=== PATIENT | male | born 1935 | race Caucasian/White ===

== ENCOUNTER 2017-10-17 17:59 | Day surgery (SDC) | payer MEDICARE ==
[~2017-10-17] VITALS: Ht 177.8 cm; Wt 93.9 kg
--- NOTE | ~2017-10-17 | OP ---
PATIENT NAME: Steve SHAY MEDICAL RECORD: [id number] :39 LOCATION:D.OPS ADMISSION DATE: SURGEON: GRAEME BRYAN MD DATE OF OPERATION: 10/18/2017 PREOPERATIVE DIAGNOSIS: Right total knee arthroplasty, posterior knee dislocation (Cam jump). POSTOPERATIVE DIAGNOSIS: Right total knee arthroplasty, posterior knee dislocation (Cam jump). PROCEDURE: Closed reduction of right total knee posterior dislocation with TIVA anesthesia. SURGEON: Graeme Bryan MD ANESTHESIA: TIVA. INTRAOPERATIVE COMPLICATIONS: None. SUMMARY OF PATHOLOGIC FINDINGS: Essentially none. OPERATIVE SUMMARY IN DETAIL: After obtaining the appropriate preoperative orthopedic surgery consent as well as anesthetic consultation, evaluation, and clearance, the patient was brought to the operating room and placed on the operating table in supine position. After adequate general TIVA anesthesia was administered and the patient was comfortable, the knee was slightly flexed to beyond 100 degrees and gentle anterior portal allowed for translation of the post back into the intercondylar notch. Excellent range of motion was achieved. No untoward instability was noted in any plane. AP and lateral fluoroscopic views were taken and sent to radiology for final analysis. Having completed this, the patient was awakened, taken to the recovery in stable condition. All final needle and sponge counts were correct. TRANSINT:[id number] Voice Confirmation ID: [id number] DOCUMENT ID: [id number] GRAEME BRYAN MD at 1606 CC: [id number] DICTATION DATE: 10/18/17 0906 HABILITATION TRAINING SPECIALIST: 10/18/17 1108 [facility] 10/18/[address] [address]
[2017-10-17 18:44] VITALS: BP 203/96
[2017-10-18] VITALS: BP 170/71
[2017-10-18 04:00] VITALS: BP 193/85
[2017-10-18 04:36] VITALS: BP 170/71; BMI 30.9
[2017-10-18 05:16] LABS: BASOPHILS 0.5 % (0-2); EOSINOPHILS 2.8 % (0-7); HEMATOCRIT 41.6 % (42.0-54.0); HEMOGLOBIN 13.3 g/dL (13.5-17.5); IMMATURE GRANULOCYTES 0.8 % (0-5); LYMPHOCYTES 29.7 % (15-50); MCH 27.5 pg (26.0-34.0); MCV 86.1 fL (80.0-100.0); MEAN PLATELET VOLUME 9.6 fL (7.4-10.4); MONOCYTES 14.4 % (2-11); NEUTROPHILS 51.8 % (40-80); PLATELET COUNT 168 10x3/uL (130-400); RBC 4.83 10x6/uL (4.20-6.10); RDW 13.4 % (11.5-14.5); WBC 8.3 10x3/uL (4.8-10.8)
[2017-10-18 05:34] LABS: ALBUMIN 2.9 g/dL (3.4-5.0); ALKALINE PHOSPHATASE 74 U/L (46-116); ALT (SGPT) 21 U/L (10-68); BILIRUBIN - TOTAL 0.43 mg/dL (0.2-1.3); CALC OSMOLALITY 275 mosm/kg (275-300); CALCIUM 8.2 mg/dL (8.5-10.1); CARBON DIOXIDE 32.9 mmol/L (21.0-32.0); CHLORIDE - SERUM 104 mmol/L (98-107); GLUCOSE 107 mg/dL (74-106); POTASSIUM - SERUM 3.7 mmol/L (3.5-5.1); SODIUM 138 mmol/L (136-145); UREA NITROGEN 13 mg/dL (7-18); eGFR NON AFRICAN AMERICAN 76 mL/min (90-120)
[2017-10-18 08:23] VITALS: BP 119/86
[2017-10-18 11:00] VITALS: BP 177/84
[2017-10-18 12:29] VITALS: Ht 177.8 cm; Wt 93.9 kg
[2017-10-18] MEDS ORDERED: HYDROCODONE-APA1 TAB PO (16:22)
== END 2017-10-18 17:04 | disposition home or self-care (01) ==
LOC: OBSVTIME → D.ER 17:59 → D.OPS 17:59 → D.ER 18:48 → OBSVTIME 18:48 → D.M2 18:48 → D.EDHOLD 18:48 → D.M2 22:30 → D.EDHOLD 22:30 → EDSTATUS 10-18 07:30 → D.M2 10-18 17:04 → D.OPS 10-18 17:04
PROVIDERS: Orthopaedic Surgery
DX: T84.022A Instability of internal right knee prosthesis, initial encounter (principal); Y83.8 Other surgical procedures as the cause of abnormal reaction of the patient, or of later complication, without mention of misadventure at the time of the procedure

== ENCOUNTER 2020-09-09 12:23 | Inpatient (IN) | payer MEDICARE ==
[~2020-09-09] VITALS: Ht 177.8 cm; Wt 101.8 kg
[~2020-09-09 12:23] MED LIST: HYDROCODONE-APA1 TAB PO
[2020-09-09 14:32] LABS: BASOPHILS 0.4 % (0-2); EOSINOPHILS 3.2 % (0-7); HEMATOCRIT 30.6 % (42.0-54.0); HEMOGLOBIN 9.8 g/dL (13.5-17.5); IMMATURE GRANULOCYTES 0.4 % (0-5); LYMPHOCYTE ABS# 1.88 10x3/uL (1.32-3.57); LYMPHOCYTES 26.3 % (15-50); MCV 84.3 fL (80.0-100.0); MONOCYTES 17.5 % (2-11); NEUTROPHIL ABS# 3.74 10x3/uL (1.78-5.38); NEUTROPHILS 52.2 % (40-80); PLATELET COUNT 214 10x3/uL (130-400); RBC 3.63 10x6/uL (4.20-6.10); RDW 13.6 % (11.5-14.5); WBC 7.2 10x3/uL (4.8-10.8)
[2020-09-09 14:40] LABS: APTT 29.1 SECONDS (22.8-39.4); INR 1.31 (0.85-1.17); PROTIME 15.1 SECONDS (11.6-15.0)
[2020-09-09 14:43] LABS: ANION GAP 10.7 mmol/L (8-16); CALCIUM 8.5 mg/dL (8.5-10.1); CREATININE - SERUM 1.2 mg/dL (0.6-1.3); POTASSIUM - SERUM 3.7 mmol/L (3.5-5.1)
[2020-09-09 14:49] LABS: ALBUMIN 2.9 g/dL (3.4-5.0); BILIRUBIN - TOTAL 0.4 mg/dL (0.2-1.3); C-REACTIVE PROTEIN 2.7 mg/dL (0.0-0.9); PROTEIN - SERUM 6.3 g/dL (6.4-8.2)
[2020-09-09 16:04] LABS: PROTEIN - BODY FLUID 4.3 G/DL
[2020-09-09 16:39] LABS: ERYTHROCYTE SEDIMENTATION RATE 12 mm/hr (0-20)
--- NOTE | 2020-09-09 17:00 | NUR ---
MERREM INFUSION COMPLETE
--- NOTE | 2020-09-09 17:10 | NUR ---
vancomycin infusion complete
[2020-09-09 18:34] VITALS: BP 151/71
[2020-09-09 18:36] LABS: MACROPHAGES BF 1 %; MESOTHELIALS BF 3 %; NEUT - BF 87 %
--- NOTE | 2020-09-09 20:00 | NUR ---
PT ARRIVED TO FLOOR AOX4 VIA WHEELCHAIR. TRANSFERED TO BED. LEFT KNEE RED/SWOLLEN AND WARM TO TOUCH. BAND AID ON KNEE FROM ASPIRATION IN ER. PT STATES HE HAD KNEE REPLACEMENT IN [place] AND JUST CAME BACK FROM REHAB THIS WEEKEND AND HE FELL INTO FLOOR AT HOME TRANSFERING OUT OF BED AND HAD TO CRAWL TO A CHAIR. SINCE THAT TIME HIS KNEE HAS HURT AND THEN STARTED SWELLING. IV RIGHT AC SL. FLUSHES EASILY. REINFORCED TAPE AROUND DRESSING. PT DENIES PAIN AT THIS TIME. PROVIDED URINAL. PLACED PT IN YELLOW GOWN. BED ALARM ON. NON SLIP SOCKS. PT DID NOT WANT TO WEARS SCDS AT THIS TIME, EDUCATED PT ON USE AND PT VERBALIZED UNDERSTANDING. EDUCATED PT ON INCENTIVE SPIROMETER AND PT DEMONSTRATED APPROPRIATE USE BACK, ENCOURAGED PT TO USE WHILE AWAKE. PT DENIES OTHER NEEDS AT THIS TIME. CL IN REACH
[2020-09-09 23:51] LABS: % SATURATION 12 % (15-55); IRON 22 ug/dl (35-150); TOTAL IRON BIND CAPACITY 171 ug/dl (260-445); UNSAT IRON BIND CAPACITY 149 ug/dl (150-375)
[2020-09-10 00:20] LABS: CKMB 1.3 U/L (0.0-3.6); CREATINE KINASE 53 UL (21-232); FERRITIN 309 ng/mL (3-244); TROPONIN-I < 0.017 ng/mL (0.000-0.060)
[2020-09-10 01:30] VITALS: BP 194/81; Ht 177.8 cm; Wt 101.8 kg
[2020-09-10 02:08] LABS: NITRITE NEGATIVE (NEGATIVE)
[2020-09-10 02:09] LABS: BILIRUBIN NEGATIVE (NEGATIVE); KETONE NEGATIVE (NEGATIVE); UROBILINOGEN NORMAL mg/dL (< 2)
[2020-09-10 04:00] VITALS: BP 167/83
[2020-09-10 07:12] LABS: BASOPHILS 0.8 % (0-2); EOSINOPHILS 4.4 % (0-7); HEMATOCRIT 28.6 % (42.0-54.0); HEMOGLOBIN 9.4 g/dL (13.5-17.5); LYMPHOCYTES 21.9 % (15-50); MCH 27.2 pg (26.0-34.0); MEAN PLATELET VOLUME 7.7 fL (7.4-10.4); MONOCYTES 14.1 % (2-11); NEUTROPHILS 58.8 % (40-80); PLATELET COUNT 204 10x3/uL (130-400); RBC 3.48 10x6/uL (4.20-6.10); RDW 14.4 % (11.5-14.5); WBC 5.8 10x3/uL (4.8-10.8)
[2020-09-10 07:18] LABS: MCV 82.3 fL (80.0-100.0)
[2020-09-10 07:24] LABS: ALBUMIN 2.6 g/dL (3.4-5.0); ALKALINE PHOSPHATASE 59 U/L (30-120); ALT (SGPT) 16 U/L (10-68); BILIRUBIN - TOTAL 0.45 mg/dL (0.2-1.3); CALC OSMOLALITY 276 mosm/kg (275-300); CALCIUM 8.1 mg/dL (8.5-10.1); CARBON DIOXIDE 31.6 mmol/L (21.0-32.0); CHLORIDE - SERUM 103 mmol/L (98-107); GLUCOSE 125 mg/dL (74-106); MAGNESIUM - SERUM 1.7 mg/dL (1.8-2.4); POTASSIUM - SERUM 3.8 mmol/L (3.5-5.1); PROTEIN - SERUM 5.9 g/dL (6.4-8.2); SODIUM 138 mmol/L (136-145); UREA NITROGEN 12 mg/dL (7-18); eGFR NON AFRICAN AMERICAN 76 mL/min (90-120)
--- NOTE | 2020-09-10 07:56 | NUR ---
PT. RESTING IN BED, DENIES ANY PAIN OR NEEDS. iv INFUSING AT THIS TIME TO R. AC KVO. LEFT KNEE IS SWOLLEN AND REDDENED. ALERT AND ORIETED. NO DISTRESS. CL WITHIN REACH. SR UPX2. YELLOW GOWN ON.
[2020-09-10] MEDS ORDERED: LIPITOR20 MG PO (09:27)
[2020-09-10] MEDS ORDERED: COZAAR100 MG PO (09:28)
[2020-09-10] MEDS ORDERED: GLUCOPHAGE1000 MG ×2 (09:28)
[2020-09-10] MEDS ORDERED: NORVASC5 MG PO (09:29)
[2020-09-10] MEDS ORDERED: ULTRAM50 MG PO (09:30)
[2020-09-10] MEDS ORDERED: FUROSEMIDE20 MG PO (09:30)
[2020-09-10] MEDS ORDERED: GABAPENTIN300 MG PO (09:31)
[2020-09-10 09:52] VITALS: BP 147/67
[2020-09-10 12:36] VITALS: BP 163/64
--- NOTE | 2020-09-10 13:45 | NUR ---
VANESA JAFFE APN CONTACTED REGARDING PT'S PAIN STATUS AND ORDERED ULTRAM NOT LASTING LONG FOR PAIN. PO HYDROCODONE 10-325 MG ORDERED Q4 HOURS PRN FOR PAIN SCALE 7-10. GRAM POSITIVE COCCI BLOOD CULTURE RESULT ALSO GIVEN AND NO NEW ORDERS AT THIS TIME.
--- NOTE | 2020-09-10 14:11 | NUR ---
REHAB PRESCREEN HAS BEEN RECEIVED. AT THIS TIME WE WOULD LIKE TO CONTINUE TO WATCH THE PATIENT TO SEE WHAT ORTHO IS PLANNING TO DO WITH HIM, AND IF HE WILL BE ABLE TO PARTICIPATE WITH THERAPY, RIGHT NOW HIS PAIN IS TO GREAT. WE WILL CONTINUE TO FOLLOW. ERNESTO WILCOX RN CLINICAL LIAISON, INPATIENT REHAB.
[2020-09-10 16:33] VITALS: BP 177/76
--- NOTE | 2020-09-10 20:00 | NUR ---
PT SITTING UP IN BED WITHOUT DISTRESS, AOX4. IV RIGHT AC INFUSING NS @ KV0. LEFT KNEE SWOLLEN, RED AND WARM TO TOUCH. 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 PT STATES HE IS COMFORTABLE AT THIS TIME AFTER NORCO EARLIER TODAY. DENIES NEEDS AT THIS TIME. CL IN REACH
[2020-09-10 20:12] VITALS: BP 160/70
--- NOTE | 2020-09-10 23:45 | NUR ---
PT STATES PAIN TO LEFT KNEE 10/17, GAVE NORCO ORDERED. PT REQUESTED AND GIVEN PUDDING AND ORANGE JUICE. DENIES OTHER NEEDS AT THIS TIME. CL IN REACH
[2020-09-11 04:00] VITALS: BP 160/74
[2020-09-11 07:20] LABS: ALBUMIN 2.5 g/dL (3.4-5.0); ANION GAP 8.4 mmol/L (8-16); BASOPHILS 0.6 % (0-2); BILIRUBIN - TOTAL 0.33 mg/dL (0.2-1.3); CALCIUM 8.3 mg/dL (8.5-10.1); CARBON DIOXIDE 30.3 mmol/L (21.0-32.0); CREATININE - SERUM 1.1 mg/dL (0.6-1.3); EOSINOPHILS 4.9 % (0-7); HEMATOCRIT 28.3 % (42.0-54.0); HEMOGLOBIN 9.3 g/dL (13.5-17.5); LYMPHOCYTES 28.6 % (15-50); MAGNESIUM - SERUM 1.9 mg/dL (1.8-2.4); MCHC 32.8 g/dL (31.0-37.0); MCV 82.3 fL (80.0-100.0); MONOCYTES 15.9 % (2-11); PLATELET COUNT 206 10x3/uL (130-400); POTASSIUM - SERUM 3.7 mmol/L (3.5-5.1); PROTEIN - SERUM 5.8 g/dL (6.4-8.2); RBC 3.44 10x6/uL (4.20-6.10); RDW 14.5 % (11.5-14.5)
[2020-09-11 08:42] VITALS: BP 160/71
--- NOTE | 2020-09-11 08:48 | NUR ---
PT. RECEIVED RESTING INBED. NO DISTRESS. DENIES ANY PAIN OR NEEDS. IV INTACT R. AC 20G. LEFT KNEE REDDENED, HOT, SWOLLEN, AND WARM. REFUSES SCDS AT THIS TIME. CL IN REACH. SRUPX2.
[2020-09-11 12:53] VITALS: BP 184/80
--- NOTE | 2020-09-11 15:03 | NUR ---
PRESSURE MATTRESS PLACED ON BED. WOUND CARE DONE TO COCCYX WOUND. 4X4 GAUZE PLACED OVER AREA AND COVERED WITH CLEAR TEGADERM. 254 CM LONG X 0.5 CM WIDE X 5.8 MM DEEP. STAGE 2. NO DRAINAGE. YELLOW, MOIST WOUND BED.
--- NOTE | 2020-09-11 16:45 | NUR ---
OT NOTE: PT COMPLETED SHAVING TASK WITH SETUP. PT COMPLETED FACE HYGIENE WITH SETUP. PT COMPLETED HAIR GROOMING WITH SETUP. PT COMPLETED HAND HYGIENE WITH SETUP. [id number] JEREMY CALDWELL COTA
[2020-09-11 17:05] VITALS: BP 189/78
[2020-09-11 21:57] VITALS: BP 107/71
[2020-09-12 04:36] LABS: EOSINOPHILS 4.5 % (0-7); HEMOGLOBIN 9.3 g/dL (13.5-17.5); LYMPHOCYTES 27.2 % (15-50); MCH 27.2 pg (26.0-34.0); MCHC 33.3 g/dL (31.0-37.0); MCV 81.7 fL (80.0-100.0); MEAN PLATELET VOLUME 7.6 fL (7.4-10.4); MONOCYTES 14.5 % (2-11); NEUTROPHILS 52.8 % (40-80); PLATELET COUNT 214 10x3/uL (130-400); RBC 3.43 10x6/uL (4.20-6.10); RDW 14.5 % (11.5-14.5); WBC 6.7 10x3/uL (4.8-10.8)
[2020-09-12 04:51] LABS: ALBUMIN 2.5 g/dL (3.4-5.0); ANION GAP 7.7 mmol/L (8-16); BILIRUBIN - TOTAL 0.38 mg/dL (0.2-1.3); CALCIUM 8.1 mg/dL (8.5-10.1); CARBON DIOXIDE 31.3 mmol/L (21.0-32.0); CREATININE - SERUM 1.2 mg/dL (0.6-1.3); MAGNESIUM - SERUM 1.9 mg/dL (1.8-2.4); PROTEIN - SERUM 5.8 g/dL (6.4-8.2)
[2020-09-12 06:38] VITALS: BP 175/59
--- NOTE | 2020-09-12 08:05 | NUR ---
PT SITTING UP IN BED. REPORTS PAIN 3/10 AT THIS TIME. RESP EVEN AND UNLABORED. IV TO RIGHT AC ITH NS @ KVO INFUSING VIA PUMP. SITE WITHOUT REDNESS OR EDEMA. REDNESS AND SWELLING NOTED TO LEFT LOWER EXTREMITY. AREA WARM TO TOUCH. OVERLAY MATTRESS IN PLACE. DENIES FURTHER NEEDS AT THIS TIME. CL WITHIN REACH. ENCOURAGED TO CALL WIT NEEDS. CONTINUE POC
[2020-09-12 09:28] VITALS: BP 170/82
[2020-09-12 12:16] VITALS: BP 163/83
[2020-09-12 17:08] VITALS: BP 173/71
--- NOTE | 2020-09-12 18:26 | MORECARE ---
CASE MANAGEMENT DISCHARGE SUMMARY PATIENT: Steve SHAY UNIT: [id number] ADM DATE: 09/09/20 AGE: 85 : 37 SEX: M ROOM/BED: D.2204 AUTHOR: MALACHI,DOC PHYSICIAN: REFERRING PHYSICIAN: THANIA WILSON MD DATE OF SERVICE: 09/12/20 Case Management Discharge Planning Summary COMMENTS ENTERED DATE: 09/12/20 18:24 CT COMMENT TYPE: Discharge Planning REVIEWER: Steve Murray CM met with patient to complete DC plan and to evaluate needs. Patient lives independently with his spouse, Kaye Godwin, . Patient stated that his home is safe and has electricity and running water. Patient stated that the home has 1 step to enter and he is able to manage entering the home without difficulty. Patient stated that he has no problems paying for medications and he fills his medications at [facility] on [address]. Patient stated that his primary care physician is Dr. Landaverde. CM discussed availability of home health, rehab services, and medical equipment. Patient declined HHS, SNF, and DME but would like inpatient rehab at [facility]. DAVID signed and placed in chart. Patient stated they have a cane, walker, and Wheelchair. Patient voiced no other needs at this time and is satisfied with DC plan. CM will continue to follow and will assist as needed with dc plans/needs. ENTERED DATE: 09/12/20 17:57 CT COMMENT TYPE: Discharge Planning REVIEWER: Philomena Mullins Faxed clinical documents(referral) to [facility] in [place] DCP REVIEW SUMMARY ANTICIPATED D/C DATE: EXPECTED LOS : CASE STATUS: DCP Initiated INITIAL REVIEW: 09/09/2020 INITIAL REVIEWER: Steve Murray FINAL DISCHARGE DISPOSITION: : FINAL REVIEWER: FINAL REVIEW DATE: DCP Focus Questions & Answers DCP Evaluation QUESTION: ANSWER Patient gives permission to discuss discharge plans with: (name, relationship and number) : spouse, Kaye Godwin, Patient's ability to cope with chronic illness : d. No chronic illness Patient's current cognitive status: : *Oriented to person, place, situation, time and present Family / Caregiver's ability to cope with chronic illness: : a. Adequate (ability to meet patient's medical needs, ensures patient attends medical appts.) Patient and/or caregiver agree upon recommended discharge plan? : Yes Physical Status: : Independent with ADL's Family / Caregiver's ability to cope with chronic illness: : a. Adequate (ability to meet patient's medical needs, ensures patient attends medical appts.) Functional screen assessment: : Basic needs can adequately be met by self Does the patient have the ability to pay for or attain post discharge needs / services? : Yes Living Arrangements: : Home with Spouse/Significant Other Is there a likelihood that the patient will require additional services to return to the preadmission environment? : No Equipment needed for post hospitalization: : None Baseline cognitive status: : *Oriented to person, place, situation, time and present Patient with capacity for self-care or can be cared for in same environment as prior to hospitalization? : Yes Physical environment modification needed / anticipated for discharge: : No Medication Management: : Patient states can afford medications Medication Management: : Patient states can read and understand medication labels Pharmacy name(s): : [facility] on [address] Does Patient have transportation to get home and to follow-up medical appointments when discharged from the hospital? : Yes Would patient like to participate in any Care Coordination programs (if applicable): : Not applicable Does the patient have electricity at home? : Yes Does the patient have running water in their house? : Yes Equipment in use: : Cane - Single Leg Equipment in use: : Walker - Rolling Equipment in use: : Wheelchair Mental health screen: : No mental health history DCP Re-evaluation QUESTION: ANSWER Would patient like to participate in any Care Coordination programs (if applicable): : Not applicable PATIENT: Steve SHAY ENCOUNTER: [id number] MEDICAL RECORD#: [id number] ADMISSION DATE: 09/09/2020 DISCHARGE DATE: ATTENDING MD: THANIA MANDUJANO : AGE: 85 MARITAL STATUS: M DC PLAN ID: [id number] FACILITY: [facility] PRINTED ON: 09/12/20 18:26 CT All edits/amendments must be made on the electronic document DICTATION DATE: 09/12/201825 SEGMENT ASSEMBLER: ALFRED 09/12/201825 RPT#: [id number] DC DATE: STATUS: ADM IN [facility] [address] [place] [address] END OF REPORT
--- NOTE | 2020-09-12 20:00 | NUR ---
PT STATES HE HAD BEEN WAITING SINCE 1845 FOR PAIN MEDS. NEITHER I OR DAYSHIFT NURSE WAS AWARE THAT HE NEEDED PAIN MEDICINE. 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 PT ANGRY AND DOWN TALKING HOSPITAL. I APOLOGIZED SINCERELY AND GAVE HIM HIS NORCO-10 AND OTHER SCHEDULED MEDS. STRAIGHTENED HIS BED AND TRIED TO MAKE HIM COMFORTABLE. BROUGHT HIM ICE WATER AND SNACKS. WILL CONTINUE TO MONITOR.
--- NOTE | 2020-09-12 21:30 | NUR ---
AT 2109, PT C/O THAT HIS PAIN IS NOT ANY BETTER SINCE RECEIVING THE PAIN MED. STATES HE "HAD TO WAIT TOO LONG" TO GET IT AND NOW HIS PAIN CAN'T BE CONTROLLED. I CALLED VANESA JAFFE APN AND RECEIVED ONE TIME ORDER FOR MORPHINE. GAVE PT MORPHINE 4MG IV PUSH. NO OTHER NEEDS. WILL CONTINUE TO MONITOR.
[2020-09-13 00:53] VITALS: BP 158/79
[2020-09-13 04:00] VITALS: BP 163/68
[2020-09-13 07:05] LABS: BASOPHILS 0.8 % (0-2); EOSINOPHILS 5.2 % (0-7); HEMATOCRIT 29.8 % (42.0-54.0); HEMOGLOBIN 9.8 g/dL (13.5-17.5); LYMPHOCYTES 26.5 % (15-50); MCH 26.8 pg (26.0-34.0); MCHC 32.8 g/dL (31.0-37.0); MCV 81.7 fL (80.0-100.0); MEAN PLATELET VOLUME 7.9 fL (7.4-10.4); MONOCYTES 13.7 % (2-11); NEUTROPHILS 53.8 % (40-80); PLATELET COUNT 226 10x3/uL (130-400); RBC 3.65 10x6/uL (4.20-6.10); RDW 14.6 % (11.5-14.5); WBC 6.6 10x3/uL (4.8-10.8)
[2020-09-13 08:05] LABS: ALBUMIN 2.7 g/dL (3.4-5.0); ALKALINE PHOSPHATASE 69 U/L (30-120); ALT (SGPT) 17 U/L (10-68); BILIRUBIN - TOTAL 0.28 mg/dL (0.2-1.3); CALC OSMOLALITY 278 mosm/kg (275-300); CALCIUM 8.2 mg/dL (8.5-10.1); CARBON DIOXIDE 31.2 mmol/L (21.0-32.0); CHLORIDE - SERUM 104 mmol/L (98-107); GLUCOSE 105 mg/dL (74-106); MAGNESIUM - SERUM 1.9 mg/dL (1.8-2.4); POTASSIUM - SERUM 4.1 mmol/L (3.5-5.1); PROTEIN - SERUM 5.8 g/dL (6.4-8.2); SODIUM 139 mmol/L (136-145); UREA NITROGEN 15 mg/dL (7-18); eGFR NON AFRICAN AMERICAN 76 mL/min (90-120)
--- NOTE | 2020-09-13 08:25 | NUR ---
PT RESTING IN BED TALKING ON PHONE. NO ACUTE DISTRESS NOTED AT THIS TIME. PT REPORTS PAIN 6/10 AT THIS TIME. PAIN MEDICATION ADMINISTERED PER MD ORDERS. IV TO RIGHT AC WITH NS @ KVO INFUSING VIA PUMP. SITE WITHOUT REDNESS OR EDEMA. LEFT LOWER EXTREMITY REMAIN REDDENED AND INFLAMED. PT VOICES UNDERSTANDING TO NPO STATUS AND UPCOMING PROCEDURE. PT DENIES FURTHER NEEDS AT THIS TIME. CL WITHIN REACH. ENCOURAGED TO CALL WITH NEEDS. CONTINUE POC
[2020-09-13 08:53] VITALS: BP 193/79
--- NOTE | 2020-09-13 12:32 | NUR ---
PATIENT'S CALLED FOR SURGERY UPDATE @ 1030. SPOKE WITH HER AND INFORMED HER THAT PATIENT WAS IN HOLDING AREA AWAITING SURGERY BUT DOING FINE. ATTEMPTED CALL TO HER AT 1212 AT ; NO ANSWER. NOTED,JERMAINE QUEEN
--- NOTE | 2020-09-13 13:33 | NUR ---
PT SAT IS ANYWHRE FROM 90-94%. PT REFUSES OXYGEN AND TAKES IT OFF WHEN PUT ON.
[2020-09-13 13:51] VITALS: BP 172/76
--- NOTE | 2020-09-13 17:03 | OP ---
PATIENT NAME: Steev SHAY MEDICAL RECORD: [id number] :37 LOCATION:D.MS Poon2203 ADMISSION DATE:09/09/20 SURGEON: ANTONIO YAÑEZ DO DATE OF OPERATION: 09/13/2020 PROCEDURE PERFORMED: Left knee irrigation and debridement with poly exchange and extensor mechanism repair. PREOPERATIVE DIAGNOSIS: Left knee extensor mechanism disruption. POSTOPERATIVE DIAGNOSIS: Left knee extensor mechanism disruption. INDICATIONS: Mr. Aguayo is an 85-year-old male who had his left knee replaced approximately 5 weeks ago in [place]. He went to a specialist there due to his right knee having several problems with infection. He presented to the ER 4 days ago with a left swollen knee, 100 mL of serosanguineous fluid was aspirated off and sent to the lab, it had a 3300 white cells in it and 87% PMNs, suspecting infection; however, due to the recent knee surgery, it may not be, told me to wait for the cultures at least 3 days, and we did and there were no bacteria that grew on cultures and even on the fourth day today. He was on IV antibiotics, vancomycin and meropenem. In the interim, he said that he felt like his kneecap was dislocated as well, but initially due to his history, we thought that it was a prosthetic joint infection. Due to negative cultures he told us that he thought his kneecap was dislocated. We got a sunrise view and indeed it was subluxed laterally, so we had disrupted his extensor mechanism repair and capsular repair. I informed him of the risks of this including majorly infection, bleeding, damage to nerves and vessels, need for further surgery, further disruption of the extensor mechanism, loss of motion of the knee, continued pain, blood clots and even and need for revision and he signed the consent. SURGEON: Antonio Yañez DO. DESCRIPTION OF PROCEDURE: The patient was taken to the operative suite, spinal was attempted, but not able to get. He was then laid in supine position and sedated and LMA was placed. He was given 2 grams of Ancef due to the spacing of his antibiotics. The left lower extremity was prepped and draped in sterile fashion. Timeout was performed. Everyone was in agreement with the correct side, site, patient, and procedure. I then marked out the old incision and covered in Ioban. I then made an incision down through the old incision. I made careful dissection down to what should have been the capsule, but it was completely disrupted from the apex of the capsular incision by medial parapatellar approach to the mid portion of the knee, quite a bit of serosanguineous fluid was there. I then finished opening the capsule, removed the poly and irrigated thoroughly. I removed part of the synovium as well and sent it for culture. I then trialed the 12, it fit well, had good extension and flexion and good stability in varus valgus stress throughout the range of motion. I irrigated one more time with at least 3 liters normal saline. I then put in a 12 posterior stabilized poly and then locked the locking pin into place. I then put in the 10% povidone iodine of 500 mL normal saline solution and let it sit for 3 minutes and then irrigated with over a liter of normal saline. I then put in Law and vancomycin and tobramycin powder and closed the capsule with #1 Vicryl in a [id number] fashion and then ran a #1 Stratafix over that. I then closed the skin with 2-0 Vicryl in inverted interrupted fashion. This was done with the help of Zaina Varner, certified OPERATIVE REPORT [id number] Steve SHAY surgical clinical assistant. I then placed a ZipLine on the knee. He was then dressed with Adaptic, 4 x 4, ABD, Webril, Tucker wrap. He was awakened and taken to recovery in stable condition. BLOOD LOSS: Approximately 200 mL. COMPLICATIONS: None. TRANSINT:[id number] Voice Confirmation ID: [id number] DOCUMENT ID: [id number] ATNONIO YAÑEZ DO at 1705 CC: [id number] DICTATION DATE: 09/13/20 1312 MAKE UP GIRL: 09/13/20 1624 ADM IN [address] [id number]
[2020-09-13 20:00] VITALS: BP 158/61
[2020-09-14] VITALS: BP 174/72
[2020-09-14 04:00] VITALS: BP 154/61
[2020-09-14 05:35] LABS: BASOPHILS 0.5 % (0-2); EOSINOPHILS 0 % (0-7); HEMATOCRIT 27.3 % (42.0-54.0); HEMOGLOBIN 9.2 g/dL (13.5-17.5); LYMPHOCYTES 14.7 % (15-50); MCH 27.2 pg (26.0-34.0); MCHC 33.8 g/dL (31.0-37.0); MCV 80.6 fL (80.0-100.0); MONOCYTES 8.1 % (2-11); NEUTROPHILS 76.7 % (40-80); PLATELET COUNT 220 10x3/uL (130-400); RBC 3.39 10x6/uL (4.20-6.10); RDW 14.3 % (11.5-14.5); WBC 6.6 10x3/uL (4.8-10.8)
[2020-09-14 06:03] LABS: ALBUMIN 2.4 g/dL (3.4-5.0); ANION GAP 10.7 mmol/L (8-16); BILIRUBIN - TOTAL 0.27 mg/dL (0.2-1.3); CARBON DIOXIDE 29.8 mmol/L (21.0-32.0); CREATININE - SERUM 1.1 mg/dL (0.6-1.3); POTASSIUM - SERUM 4.5 mmol/L (3.5-5.1); PROTEIN - SERUM 5.8 g/dL (6.4-8.2)
--- NOTE | 2020-09-14 07:13 | NUR ---
0700 BEDSIDE REPORT RECEIVED AWAKE ALERT WITH LEFT KNEE IN CPM MACHINE REPORTS NO PAIN AT THIS TIME
--- NOTE | 2020-09-14 08:23 | NUR ---
0758 DR LOGAN AT BEDSIDE ASSESSING PATIENT
--- NOTE | 2020-09-14 09:06 | NUR ---
PATIENT IS POD#1 TODAY, AND SHOULD START WORKING WITH THERAPY TODAY. IF HE MEETS CRITERIA, AND WANTS TO COME, WE WILL LOOK AT TAKING TOMORROW. ERNESTO WILCOX RN CLINICAL LIAISON, INPATIENT REHAB.
[2020-09-14 10:07] VITALS: BP 175/78
[2020-09-14 12:50] VITALS: BP 144/68
--- NOTE | 2020-09-14 16:12 | NUR ---
OT NOTE: PT COMPLETED FACE HYGIENE WITH SETUP. PT COMPLETED HAIR GROOMING WITH SETUP. PT COMPLETED BED MOBILITY WITH MIN A. PT COMPLETED SITTING AT EOB WITH CGA. [id number] THANK YOU,NICK TELLEZ
[2020-09-14 18:13] VITALS: BP 161/60
--- NOTE | 2020-09-14 19:45 | NUR ---
RECEIVED BEDSIDE REPORT. PT LAYING IN BED A&O X4. PIV TO RIGHT WRIST PATENT AND INFUSING, NO REDNESS OR SWELLING. INCISION TO LEFT KNEE, DRSG C/D/I. PT ABLE TO AMBULATE WITH PT. PRESSURE ULCER TO COCCYX, DRSG C/D/I. EDUCATED PT ON CL AND NEEDS, VERBALIZED UNDERSTANDING. BED LOW, CL IN REACH.
[2020-09-14 20:00] VITALS: BP 147/58
--- NOTE | 2020-09-14 23:00 | NUR ---
CHANGED DRSG TO COCCYX, APLLIED BRUNO GAUZE AND TEGADERM, PT TOLERATED WELL. BED LOW, CL IN REACH.
[2020-09-15] VITALS: BP 161/67
[2020-09-15 04:00] VITALS: BP 139/67
[2020-09-15 05:01] LABS: BASOPHILS 0.7 % (0-2); EOSINOPHILS 1.4 % (0-7); HEMATOCRIT 26.1 % (42.0-54.0); HEMOGLOBIN 8.7 g/dL (13.5-17.5); MCH 27.1 pg (26.0-34.0); MCHC 33.3 g/dL (31.0-37.0); MCV 81.4 fL (80.0-100.0); MONOCYTES 12.1 % (2-11); NEUTROPHILS 63.8 % (40-80); PLATELET COUNT 222 10x3/uL (130-400); RBC 3.21 10x6/uL (4.20-6.10); RDW 14.3 % (11.5-14.5); WBC 7.4 10x3/uL (4.8-10.8)
[2020-09-15 05:14] LABS: ALBUMIN 2.3 g/dL (3.4-5.0); ANION GAP 7.5 mmol/L (8-16); BILIRUBIN - TOTAL 0.18 mg/dL (0.2-1.3); CALCIUM 8.1 mg/dL (8.5-10.1); CARBON DIOXIDE 32.5 mmol/L (21.0-32.0); CREATININE - SERUM 1.2 mg/dL (0.6-1.3); PROTEIN - SERUM 5.6 g/dL (6.4-8.2)
[2020-09-15 08:56] VITALS: BP 196/81
--- NOTE | 2020-09-15 09:15 | MORECARE ---
CASE MANAGEMENT DISCHARGE SUMMARY PATIENT: Steve SHAY UNIT: [id number] ADM DATE: 09/09/20 AGE: 85 : 37 SEX: M ROOM/BED: D.2204 AUTHOR: MALACHI,DOC PHYSICIAN: REFERRING PHYSICIAN: THANIA WILSON MD DATE OF SERVICE: 09/15/20 Case Management Discharge Planning Summary COMMENTS ENTERED DATE: 09/15/20 9:11 CT COMMENT TYPE: Discharge Planning REVIEWER: Lacy Brewer SPOKE WITH PHAN AT [facility] AND THEY DO NOT HAVE ANY AVAIBILITY AT THIS TIME AND COULD NOT GIVE ME A DATE OF WHEN THEY WOULD , I WILL CHECK WITH PATIENT ABOUT HIS SECOND CHOICE ENTERED DATE: 09/12/20 18:24 CT COMMENT TYPE: Discharge Planning REVIEWER: Steve Murray CM met with patient to complete DC plan and to evaluate needs. Patient lives independently with his spouse, Kaye Godwin, . Patient stated that his home is safe and has electricity and running water. Patient stated that the home has 1 step to enter and he is able to manage entering the home without difficulty. Patient stated that he has no problems paying for medications and he fills his medications at [facility] on [address]. Patient stated that his primary care physician is Dr. Landaverde. CM discussed availability of home health, rehab services, and medical equipment. Patient declined HHS, SNF, and DME but would like inpatient rehab at [facility]. DAVID signed and placed in chart. Patient stated they have a cane, walker, and Wheelchair. Patient voiced no other needs at this time and is satisfied with DC plan. CM will continue to follow and will assist as needed with dc plans/needs. ENTERED DATE: 09/12/20 17:57 CT COMMENT TYPE: Discharge Planning REVIEWER: Philomena Mullins Faxed clinical documents(referral) to [facility] in [facility] REVIEW SUMMARY ANTICIPATED D/C DATE: EXPECTED LOS : CASE STATUS: DCP Initiated INITIAL REVIEW: 09/09/2020 INITIAL REVIEWER: Steve Murray FINAL DISCHARGE DISPOSITION: : FINAL REVIEWER: FINAL REVIEW DATE: DCP Focus Questions & Answers DCP Evaluation QUESTION: ANSWER Patient gives permission to discuss discharge plans with: (name, relationship and number) : spouse, Kaye Godwin, Patient's ability to cope with chronic illness : d. No chronic illness Patient's current cognitive status: : *Oriented to person, place, situation, time and present Family / Caregiver's ability to cope with chronic illness: : a. Adequate (ability to meet patient's medical needs, ensures patient attends medical appts.) Patient and/or caregiver agree upon recommended discharge plan? : Yes Physical Status: : Independent with ADL's Family / Caregiver's ability to cope with chronic illness: : a. Adequate (ability to meet patient's medical needs, ensures patient attends medical appts.) Functional screen assessment: : Basic needs can adequately be met by self Does the patient have the ability to pay for or attain post discharge needs / services? : Yes Living Arrangements: : Home with Spouse/Significant Other Is there a likelihood that the patient will require additional services to return to the preadmission environment? : No Equipment needed for post hospitalization: : None Baseline cognitive status: : *Oriented to person, place, situation, time and present Patient with capacity for self-care or can be cared for in same environment as prior to hospitalization? : Yes Physical environment modification needed / anticipated for discharge: : No Medication Management: : Patient states can afford medications Medication Management: : Patient states can read and understand medication labels Pharmacy name(s): : [facility] on [address] Does Patient have transportation to get home and to follow-up medical appointments when discharged from the hospital? : Yes Would patient like to participate in any Care Coordination programs (if applicable): : Not applicable Does the patient have electricity at home? : Yes Does the patient have running water in their house? : Yes Equipment in use: : Cane - Single Leg Equipment in use: : Walker - Rolling Equipment in use: : Wheelchair Mental health screen: : No mental health history DCP Re-evaluation QUESTION: ANSWER Would patient like to participate in any Care Coordination programs (if applicable): : Not applicable PATIENT: Steve SHAY ENCOUNTER: [id number] MEDICAL RECORD#: [id number] ADMISSION DATE: 09/09/2020 DISCHARGE DATE: ATTENDING MD: THANIA MANDUJANO : AGE: 85 MARITAL STATUS: M DC PLAN ID: [id number] FACILITY: [facility] PRINTED ON: 09/15/20 9:15 CT All edits/amendments must be made on the electronic document DICTATION DATE: 09/15/20914 ELECTRIC MOTOR REPAIRMAN: ALFRED 09/15/20914 RPT#: [id number] DC DATE: STATUS: ADM IN [facility] [address] [place] [address] END OF REPORT
--- NOTE | 2020-09-15 09:47 | MORECARE ---
CASE MANAGEMENT DISCHARGE SUMMARY PATIENT: Setve SHAY UNIT: [id number] ADM DATE: 09/09/20 AGE: 85 : 37 SEX: M ROOM/BED: D.2204 AUTHOR: MALACHI,DOC PHYSICIAN: REFERRING PHYSICIAN: THANIA WILSON MD DATE OF SERVICE: 09/15/20 Case Management Discharge Planning Summary COMMENTS ENTERED DATE: 09/15/20 9:40 CT COMMENT TYPE: Discharge Planning REVIEWER: Lacy MUNOZ ( DAUGHTER) [phone] ENTERED DATE: 09/15/20 9:39 CT COMMENT TYPE: Discharge Planning REVIEWER: Lacy Brewer JASBIR IS FULL TILL MONDAY OF NEXT WEEK, I SPOKE WITH HIM AND HIS DAUGHTER AT LENGTH ABOUT HIS OPTIONS, HE WOULD LIKE TO STAY HERE AT [facility] IF THERE IS A PRIVATE ROOM. I CALLED ERNESTO WITH REHAB TO REQUEST THAT, IMM SERVED AND EXPLAINED, DAVID SIGNED WILL WAIT TO HEAR FROM [facility] TODAY. CM TO FOLLOW AND ASSIST ENTERED DATE: 09/15/20 9:11 CT COMMENT TYPE: Discharge Planning REVIEWER: Lacy Brewer SPOKE WITH PHAN AT [facility] AND THEY DO NOT HAVE ANY AVAIBILITY AT THIS TIME AND COULD NOT GIVE ME A DATE OF WHEN THEY WOULD , I WILL CHECK WITH PATIENT ABOUT HIS SECOND CHOICE ENTERED DATE: 09/12/20 18:24 CT COMMENT TYPE: Discharge Planning REVIEWER: Steve Murray CM met with patient to complete DC plan and to evaluate needs. Patient lives independently with his spouse, Kaye Godwin, . Patient stated that his home is safe and has electricity and running water. Patient stated that the home has 1 step to enter and he is able to manage entering the home without difficulty. Patient stated that he has no problems paying for medications and he fills his medications at [facility] on [address]. Patient stated that his primary care physician is Dr. Landaverde. CM discussed availability of home health, rehab services, and medical equipment. Patient declined HHS, SNF, and DME but would like inpatient rehab at [facility]. DAVID signed and placed in chart. Patient stated they have a cane, walker, and Wheelchair. Patient voiced no other needs at this time and is satisfied with DC plan. CM will continue to follow and will assist as needed with dc plans/needs. ENTERED DATE: 09/12/20 17:57 CT COMMENT TYPE: Discharge Planning REVIEWER: Philomena Mullins Faxed clinical documents(referral) to [facility] in [place] DCP REVIEW SUMMARY ANTICIPATED D/C DATE: EXPECTED LOS : CASE STATUS: DCP Initiated INITIAL REVIEW: 09/09/2020 INITIAL REVIEWER: Steve Murray FINAL DISCHARGE DISPOSITION: : FINAL REVIEWER: FINAL REVIEW DATE: DCP Focus Questions & Answers DCP Evaluation QUESTION: ANSWER Patient gives permission to discuss discharge plans with: (name, relationship and number) : spouse, Kaye Godwin, Patient's ability to cope with chronic illness : d. No chronic illness Patient's current cognitive status: : *Oriented to person, place, situation, time and present Family / Caregiver's ability to cope with chronic illness: : a. Adequate (ability to meet patient's medical needs, ensures patient attends medical appts.) Patient and/or caregiver agree upon recommended discharge plan? : Yes Physical Status: : Independent with ADL's Family / Caregiver's ability to cope with chronic illness: : a. Adequate (ability to meet patient's medical needs, ensures patient attends medical appts.) Functional screen assessment: : Basic needs can adequately be met by self Does the patient have the ability to pay for or attain post discharge needs / services? : Yes Living Arrangements: : Home with Spouse/Significant Other Is there a likelihood that the patient will require additional services to return to the preadmission environment? : No Equipment needed for post hospitalization: : None Baseline cognitive status: : *Oriented to person, place, situation, time and present Patient with capacity for self-care or can be cared for in same environment as prior to hospitalization? : Yes Physical environment modification needed / anticipated for discharge: : No Medication Management: : Patient states can afford medications Medication Management: : Patient states can read and understand medication labels Pharmacy name(s): : [facility] on [address] Does Patient have transportation to get home and to follow-up medical appointments when discharged from the hospital? : Yes Would patient like to participate in any Care Coordination programs (if applicable): : Not applicable Does the patient have electricity at home? : Yes Does the patient have running water in their house? : Yes Equipment in use: : Cane - Single Leg Equipment in use: : Walker - Rolling Equipment in use: : Wheelchair Mental health screen: : No mental health history DCP Re-evaluation QUESTION: ANSWER Would patient like to participate in any Care Coordination programs (if applicable): : Not applicable PATIENT: Steve SHAY ENCOUNTER: [id number] MEDICAL RECORD#: [id number] ADMISSION DATE: 09/09/2020 DISCHARGE DATE: ATTENDING MD: THANIA MANDUJANO : AGE: 85 MARITAL STATUS: M DC PLAN ID: [id number] FACILITY: [facility] PRINTED ON: 09/15/20 9:47 CT All edits/amendments must be made on the electronic document DICTATION DATE: 09/15/20945 GREY PERCHER: ALFRED 09/15/20945 RPT#: [id number] DC DATE: STATUS: ADM IN [facility] [address] [place] [address] END OF REPORT
--- NOTE | 2020-09-15 10:15 | NUR ---
WENT IN TO TALK TO THE PATIENT ABOUT COMING TO INPATIENT REHAB. PATIENT HAS HAD REHAB BEFORE HIS RIGHT KNEE HAS BEEN REPLACED 3 TIMES. HE HAS STATED HE NEEDS THE PHYSICAL THERAPY, BUT NOT THE OCCUPATIONAL THERAPY. HE STATED THAT ONCE OCCUPATIONAL THERAPY "TEACHES YOU WHAT YOU NEED TO KNOW, YOU ALREADY KNOW IT AND DON'T NEED TO LEARN IT AGAIN". I HAVE EXPLAINED TO HIM THAT PART OF THE REQUIREMENTS TO COMING TO INPATIENT REHAB IS THAT HE HAS TO HAVE AT LEAST TWO THERAPY DISCIPLINES WORKING WITH HIM, AND HE HAS TO BE ABLE TO TOLERATE THE 3 HOURS A DAY. AT THE TIME I WAS UP THERE HE WAS WANTING TO GO TO SNF INSTEAD. I DID RECEIVE A MESSAGE ABOUT 10 MINUTES AFTER I RETURNED TO THE FLOOR THAT STATED THE PATIENT HAS DECIDED THAT HE DOES WANT TO COME TO INPATIENT REHAB. I WILL PRESENT HIM TO THE TRIAL COURT JUDGE AND START THE ELECTRONIC SCREEN AFTER IDT TODAY. ERNESTO WILCOX RN CLINICAL LIAISON, INPATIENT REHAB.
[2020-09-15 12:38] VITALS: BP 168/79
--- NOTE | 2020-09-15 13:53 | NUR ---
1245 DRESSING CHANGED TO RIGHT KNEE SURGICAL SITE USING MEPILEX AG AND WRAPPED WITH [address] YAÑEZ INSTRUCTIONS
--- NOTE | 2020-09-15 15:05 | NUR ---
OT NOTE: PT COMPLETED BED MOBILITY WITH MIN A. PT COMPLETED SITTING BALANCE WITH SPV. PT COMPLETED SIT TO STAND WITH MAX A. PT C/O PAIN IN LE. NURSNG AWARE. PT COMPLETED TRICEP EXTENSIONS TO ASSIST WITH SIT TO STANDS. [phone] JEREMY CALDWELL COTA
--- NOTE | 2020-09-15 15:19 | NUR ---
1519 DRESSING TO COCCYX COMPLETE
[2020-09-15] MEDS ORDERED: PROTONIX40 MG PO (15:36)
[2020-09-15] MEDS ORDERED: HYDROCODON-ACE1 EAC7 PO (15:36)
[2020-09-15] MEDS ORDERED: FLORAJEN DIGES1 EACH PO (15:36)
[2020-09-15] MEDS ORDERED: Merrem 1 GM/NS 100 M IV (15:36)
[2020-09-15] MEDS ORDERED: ELIQUIS2.5 MG PO (15:36)
[2020-09-15] MEDS ORDERED: IPRAT-ALBUT 0.5-3 ML INH (15:36)
[2020-09-15] MEDS ORDERED: HYDROCODON-ACE1 EA10 PO (15:36)
[2020-09-15] MEDS ORDERED: VANCOMYCIN 1.5 GM/NS IV (15:36)
[2020-09-15] MEDS ORDERED: HUMULIN R100 UNIT/1 SC (15:36)
[2020-09-15] MEDS ORDERED: COLACE100 MG PO (15:36)
[2020-09-15 17:24] VITALS: BP 158/74
--- NOTE | 2020-09-15 18:23 | NUR ---
NOTIFIED PATIENT'S NURSE, KEITH, AND WATCH ENGINE OPERATOR, AGNIESZKA, THAT PATIENT HAS BEEN ACCEPTED TO REHAB AND HAS BEEN ASSIGNED ROOM 1110.-ISH RAE LPN, CLINICAL LIAISON
--- NOTE | 2020-09-15 18:52 | NUR ---
0652 REPORT CALLED TO [facility] TOOK PT TO REHAB VIA BED
--- NOTE | 2020-09-16 10:18 | MORECARE ---
CASE MANAGEMENT DISCHARGE SUMMARY PATIENT: Steve SHAY UNIT: [id number] ADM DATE: 09/09/20 AGE: 85 : 37 SEX: M ROOM/BED: D.2204 AUTHOR: MALACHI,DOC PHYSICIAN: REFERRING PHYSICIAN: THANIA WILSON MD DATE OF SERVICE: 09/16/20 Case Management Discharge Planning Summary COMMENTS ENTERED DATE: 09/15/20 9:40 CT COMMENT TYPE: Discharge Planning REVIEWER: Lacy MUNOZ ( DAUGHTER) [phone] ENTERED DATE: 09/15/20 9:39 CT COMMENT TYPE: Discharge Planning REVIEWER: Lacy Brewer JASBIR IS FULL TILL MONDAY OF NEXT WEEK, I SPOKE WITH HIM AND HIS DAUGHTER AT LENGTH ABOUT HIS OPTIONS, HE WOULD LIKE TO STAY HERE AT [facility] IF THERE IS A PRIVATE ROOM. I CALLED ERNESTO WITH REHAB TO REQUEST THAT, IMM SERVED AND EXPLAINED, DAVID SIGNED WILL WAIT TO HEAR FROM [facility] TODAY. CM TO FOLLOW AND ASSIST ENTERED DATE: 09/15/20 9:11 CT COMMENT TYPE: Discharge Planning REVIEWER: Lacy Brewer SPOKE WITH PHAN AT [facility] AND THEY DO NOT HAVE ANY AVAIBILITY AT THIS TIME AND COULD NOT GIVE ME A DATE OF WHEN THEY WOULD , I WILL CHECK WITH PATIENT ABOUT HIS SECOND CHOICE ENTERED DATE: 09/12/20 18:24 CT COMMENT TYPE: Discharge Planning REVIEWER: Steve Murray CM met with patient to complete DC plan and to evaluate needs. Patient lives independently with his spouse, Kaye Godwin, . Patient stated that his home is safe and has electricity and running water. Patient stated that the home has 1 step to enter and he is able to manage entering the home without difficulty. Patient stated that he has no problems paying for medications and he fills his medications at [facility] on [address]. Patient stated that his primary care physician is Dr. Landaverde. CM discussed availability of home health, rehab services, and medical equipment. Patient declined HHS, SNF, and DME but would like inpatient rehab at [facility]. DAVID signed and placed in chart. Patient stated they have a cane, walker, and Wheelchair. Patient voiced no other needs at this time and is satisfied with DC plan. CM will continue to follow and will assist as needed with dc plans/needs. ENTERED DATE: 09/12/20 17:57 CT COMMENT TYPE: Discharge Planning REVIEWER: Philomena Mullins Faxed clinical documents(referral) to [facility] in [place] DCP REVIEW SUMMARY ANTICIPATED D/C DATE: EXPECTED LOS : 0 CASE STATUS: DCP Complete INITIAL REVIEW: 09/09/2020 INITIAL REVIEWER: Steve Murray FINAL DISCHARGE DISPOSITION: 62 : Discharged/Trans to Rehab Facility Including Distinct Units of a Hospital FINAL REVIEWER: Steve Murray FINAL REVIEW DATE: 09/16/2020 DCP Focus Questions & Answers DCP Evaluation QUESTION: ANSWER Patient gives permission to discuss discharge plans with: (name, relationship and number) : spouse, Kaye Godwin, Patient's ability to cope with chronic illness : d. No chronic illness Patient's current cognitive status: : *Oriented to person, place, situation, time and present Family / Caregiver's ability to cope with chronic illness: : a. Adequate (ability to meet patient's medical needs, ensures patient attends medical appts.) Patient and/or caregiver agree upon recommended discharge plan? : Yes Physical Status: : Independent with ADL's Family / Caregiver's ability to cope with chronic illness: : a. Adequate (ability to meet patient's medical needs, ensures patient attends medical appts.) Functional screen assessment: : Basic needs can adequately be met by self Does the patient have the ability to pay for or attain post discharge needs / services? : Yes Living Arrangements: : Home with Spouse/Significant Other Is there a likelihood that the patient will require additional services to return to the preadmission environment? : No Equipment needed for post hospitalization: : None Baseline cognitive status: : *Oriented to person, place, situation, time and present Patient with capacity for self-care or can be cared for in same environment as prior to hospitalization? : Yes Physical environment modification needed / anticipated for discharge: : No Medication Management: : Patient states can afford medications Medication Management: : Patient states can read and understand medication labels Pharmacy name(s): : [facility] on [address] Does Patient have transportation to get home and to follow-up medical appointments when discharged from the hospital? : Yes Would patient like to participate in any Care Coordination programs (if applicable): : Not applicable Does the patient have electricity at home? : Yes Does the patient have running water in their house? : Yes Equipment in use: : Cane - Single Leg Equipment in use: : Walker - Rolling Equipment in use: : Wheelchair Mental health screen: : No mental health history DCP Re-evaluation QUESTION: ANSWER Would patient like to participate in any Care Coordination programs (if applicable): : Not applicable PATIENT: Steve SHAY ENCOUNTER: [id number] MEDICAL RECORD#: [id number] ADMISSION DATE: 09/09/2020 DISCHARGE DATE: 09/15/2020 ATTENDING MD: THANIA MANDUJANO : AGE: 85 MARITAL STATUS: M DC PLAN ID: [id number] FACILITY: [facility] PRINTED ON: 09/16/20 10:18 CT All edits/amendments must be made on the electronic document DICTATION DATE: 09/16/20 1017 ENVIRONMENTAL PROTECTION INSPECTOR: ALFRED 09/16/20 1017 RPT#: [id number] DC DATE:09/15/20 STATUS: DIS IN [facility] [address] [place] [address] END OF REPORT
--- NOTE | 2020-09-17 14:38 | MORECARE ---
CASE MANAGEMENT DISCHARGE SUMMARY PATIENT: Steve SHAY UNIT: [id number] ADM DATE: 09/09/20 AGE: 85 : 37 SEX: M ROOM/BED: D.2204 AUTHOR: MALACHI,DOC PHYSICIAN: REFERRING PHYSICIAN: THANIA WILSON MD DATE OF SERVICE: 09/17/20 Case Management Discharge Planning Summary COMMENTS ENTERED DATE: 09/15/20 9:40 CT COMMENT TYPE: Discharge Planning REVIEWER: Lacy MUNOZ ( DAUGHTER) [phone] ENTERED DATE: 09/15/20 9:39 CT COMMENT TYPE: Discharge Planning REVIEWER: Lacy Brewer JASBIR IS FULL TILL MONDAY OF NEXT WEEK, I SPOKE WITH HIM AND HIS DAUGHTER AT LENGTH ABOUT HIS OPTIONS, HE WOULD LIKE TO STAY HERE AT [facility] IF THERE IS A PRIVATE ROOM. I CALLED ERNESTO WITH REHAB TO REQUEST THAT, IMM SERVED AND EXPLAINED, DAVID SIGNED WILL WAIT TO HEAR FROM [facility] TODAY. CM TO FOLLOW AND ASSIST ENTERED DATE: 09/15/20 9:11 CT COMMENT TYPE: Discharge Planning REVIEWER: Lacy Brewer SPOKE WITH PHAN AT [facility] AND THEY DO NOT HAVE ANY AVAIBILITY AT THIS TIME AND COULD NOT GIVE ME A DATE OF WHEN THEY WOULD , I WILL CHECK WITH PATIENT ABOUT HIS SECOND CHOICE ENTERED DATE: 09/12/20 18:24 CT COMMENT TYPE: Discharge Planning REVIEWER: Steve Murray CM met with patient to complete DC plan and to evaluate needs. Patient lives independently with his spouse, Kaye Godwin, . Patient stated that his home is safe and has electricity and running water. Patient stated that the home has 1 step to enter and he is able to manage entering the home without difficulty. Patient stated that he has no problems paying for medications and he fills his medications at [facility] on [address]. Patient stated that his primary care physician is Dr. Landaverde. CM discussed availability of home health, rehab services, and medical equipment. Patient declined HHS, SNF, and DME but would like inpatient rehab at [facility]. DAVID signed and placed in chart. Patient stated they have a cane, walker, and Wheelchair. Patient voiced no other needs at this time and is satisfied with DC plan. CM will continue to follow and will assist as needed with dc plans/needs. ENTERED DATE: 09/12/20 17:57 CT COMMENT TYPE: Discharge Planning REVIEWER: Philomena Mullins Faxed clinical documents(referral) to [facility] in [place] DCP REVIEW SUMMARY ANTICIPATED D/C DATE: EXPECTED LOS : 0 CASE STATUS: DCP Complete INITIAL REVIEW: 09/09/2020 INITIAL REVIEWER: Steve Murray FINAL DISCHARGE DISPOSITION: 62 : Discharged/Trans to Rehab Facility Including Distinct Units of a Hospital FINAL REVIEWER: Steve Murray FINAL REVIEW DATE: 09/16/2020 DCP Focus Questions & Answers DCP Evaluation QUESTION: ANSWER Patient and/or caregiver agree upon recommended discharge plan? : Yes Family / Caregiver's ability to cope with chronic illness: : a. Adequate (ability to meet patient's medical needs, ensures patient attends medical appts.) Patient's current cognitive status: : *Oriented to person, place, situation, time and present Patient's ability to cope with chronic illness : d. No chronic illness Patient gives permission to discuss discharge plans with: (name, relationship and number) : spouse, Kaye Godwin, Does the patient have the ability to pay for or attain post discharge needs / services? : Yes Functional screen assessment: : Basic needs can adequately be met by self Family / Caregiver's ability to cope with chronic illness: : a. Adequate (ability to meet patient's medical needs, ensures patient attends medical appts.) Physical Status: : Independent with ADL's Equipment needed for post hospitalization: : None Is there a likelihood that the patient will require additional services to return to the preadmission environment? : No Living Arrangements: : Home with Spouse/Significant Other Patient with capacity for self-care or can be cared for in same environment as prior to hospitalization? : Yes Baseline cognitive status: : *Oriented to person, place, situation, time and present Physical environment modification needed / anticipated for discharge: : No Medication Management: : Patient states can read and understand medication labels Medication Management: : Patient states can afford medications Pharmacy name(s): : [facility] [address] Does Patient have transportation to get home and to follow-up medical appointments when discharged from the hospital? : Yes Would patient like to participate in any Care Coordination programs (if applicable): : Not applicable Does the patient have electricity at home? : Yes Does the patient have running water in their house? : Yes Equipment in use: : Wheelchair Equipment in use: : Walker - Rolling Equipment in use: : Cane - Single Leg Mental health screen: : No mental health history DCP Re-evaluation QUESTION: ANSWER Would patient like to participate in any Care Coordination programs (if applicable): : Not applicable PATIENT: Steve SHAY ENCOUNTER: [id number] MEDICAL RECORD#: [id number] ADMISSION DATE: 09/09/2020 DISCHARGE DATE: 09/15/2020 ATTENDING MD: THANIA MANDUJANO : AGE: 85 MARITAL STATUS: M DC PLAN ID: [id number] FACILITY: [facility] PRINTED ON: 09/17/20 14:38 CT All edits/amendments must be made on the electronic document DICTATION DATE: 09/17/201437 FISHING FLOATS ASSEMBLER: ALFRED 09/17/20 143 RPT#: [id number] DC DATE:09/15/20 STATUS: DIS IN [facility] [address] [place] [address] END OF REPORT
== END 2020-09-15 18:53 | DRG 486 ==
LOC: D.ER 12:23 → D.EDHOLD 16:06 → D.MS 16:06
PROVIDERS: Family Medicine; Orthopaedic Surgery; ADMIT Family Medicine; ATTEND Family Medicine
PROC: 0S9D3ZZ Drainage of Left Knee Joint, Percutaneous Approach (ICD-10-PCS; 2020-09-13)
PROC: 0QQF0ZZ Repair Left Patella, Open Approach (ICD-10-PCS; principal; 2020-09-13 12:15)
DX: T84.54XA Infection and inflammatory reaction due to internal left knee prosthesis, initial encounter (principal); M00.9 Pyogenic arthritis, unspecified; D64.9 Anemia, unspecified; G89.29 Other chronic pain; M54.9 Dorsalgia, unspecified; E11.40 Type 2 diabetes mellitus with diabetic neuropathy, unspecified; Z87.891 Personal history of nicotine dependence; M19.90 Unspecified osteoarthritis, unspecified site

== ENCOUNTER 2020-09-15 19:55 | Inpatient (IN) | payer MEDICARE ==
[~2020-09-15] VITALS: Ht 177.8 cm; Wt 108.0 kg
--- NOTE | 2020-09-15 19:20 | NUR ---
RECEIVED PT FROM [facility] FLOOR VIA BED. PT IS ALERT AND ORIENTED X4. ORIENTED PT TO ROOM, BATHROOM, AND FUNCTIONS OF REMOTE/CALL LIGHT. PT IS ON A OVERLAY MATTRESS D/T COCCYX PRESSURE INJURY. LEFT KNEE JUSTIN WRAP DRESSING INTACT, CHANGED TODAY PER PT, REMOVED JUSTIN WRAP TO ASSESS INCISION, MEPILEX AG DRESSING COVERING ZIP TIE INCISION CLOSURE. NO S/S OF INFECTION. SCAB SORE TO RIGHT INNER LEG NEAR ANKLE. NO DRAINAGE NOTED. STAGE III 2.5CM X 1CM X 0.3 WITH PINK TINGED SCANT DRAINAGE. RIGHT WRIST IV PATENT, NO S/S OF INFECTION OR INFILTRATION. DRESSING AND SWAB CAP INTACT. PT DENIES ANY NEEDS OR PAIN. NO DISTRESS NOTED. CALL LIGHT AND WATER WITHIN REACH. BED ALARM ON. CPOC
[~2020-09-15 19:55] MED LIST changes: +COLACE100 MG PO; +COZAAR100 MG PO; +ELIQUIS2.5 MG PO; +FLORAJEN DIGES1 EACH PO; +FUROSEMIDE20 MG PO; +GABAPENTIN300 MG PO; +GLUCOPHAGE1000 MG; +HUMULIN R100 UNIT/1 SC; +HYDROCODON-ACE1 EA10 PO; +HYDROCODON-ACE1 EAC7 PO; +IPRAT-ALBUT 0.5-3 ML INH; +LIPITOR20 MG PO; +Merrem 1 GM/NS 100 M IV; +NORVASC5 MG PO; +PROTONIX40 MG PO; +ULTRAM50 MG PO; +VANCOMYCIN 1.5 GM/NS IV
[2020-09-16 00:50] VITALS: BP 159/70; BMI 34.2
--- NOTE | 2020-09-16 05:00 | NUR ---
PT LYING IN BED ON LEFT SIDE EYES CLOSED RESTING. RR EVEN AND UNLABORED. NO ACUTE CHANGES IN CONDITION THIS SHIFT. OVERLAY MATTRESS INFLATED AND FUNCTIONING PROPERLY. CALL LIGHT AND WATER WITHIN REACH. BED ALARM ON
[2020-09-16 07:31] LABS: EOSINOPHILS 5.2 % (0-7); HEMATOCRIT 30.3 % (42.0-54.0); HEMOGLOBIN 9.8 g/dL (13.5-17.5); LYMPHOCYTES 30.2 % (15-50); MCH 26.3 pg (26.0-34.0); MCHC 32.2 g/dL (31.0-37.0); MCV 81.7 fL (80.0-100.0); MEAN PLATELET VOLUME 7.7 fL (7.4-10.4); MONOCYTES 12.7 % (2-11); NEUTROPHILS 50.9 % (40-80); PLATELET COUNT 266 10x3/uL (130-400); RBC 3.71 10x6/uL (4.20-6.10); RDW 14.5 % (11.5-14.5); WBC 6.8 10x3/uL (4.8-10.8)
[2020-09-16 07:46] VITALS: BP 189/88
[2020-09-16 07:53] LABS: CALC OSMOLALITY 283 mosm/kg (275-300); CALCIUM 8.5 mg/dL (8.5-10.1); CARBON DIOXIDE 32.2 mmol/L (21.0-32.0); CHLORIDE - SERUM 105 mmol/L (98-107); GLUCOSE 109 mg/dL (74-106); SODIUM 142 mmol/L (136-145); UREA NITROGEN 12 mg/dL (7-18); eGFR NON AFRICAN AMERICAN 76 mL/min (90-120)
[2020-09-16 13:00] VITALS: Ht 177.8 cm; Wt 108.0 kg
--- NOTE | 2020-09-16 15:32 | NUR ---
CARE TEAM MEETING: PATIENT IS NEW TO UNIT AND WILL BE RA AT NEXT MEETING. DR. NAVA IS HIS PCP, DME AT HOME IS A CANE, WALKER AND A WHEELCHAIR. DISCHARGE PLANS ARE FOR HIM TO RETURN TO HIS HOME. WILL CONTINUE TO FOLLOW WITH PATIENT.
--- NOTE | 2020-09-16 20:01 | NUR ---
RESTING IN BED, NO DISTRESS NOTED, SL IN PLACE, REMOVED FROM CPM, CONT TO MONITOR PAIN, DRESSING TO L KNEE DRY AND INTACT
[2020-09-16 20:45] VITALS: BP 187/78
--- NOTE | 2020-09-17 03:46 | NUR ---
medicated for pain, cpm started at pt request
[2020-09-17 07:16] LABS: CREATININE - SERUM 1.1 mg/dL (0.6-1.3); VANCOMYCIN - TROUGH 14.9 ug/mL (10.0-20.0)
[2020-09-17 08:39] VITALS: BP 159/69
--- NOTE | 2020-09-17 17:16 | NUR ---
22G IV TO LEFT WRIST WITH ONE ATTEMPT. COVERED WITH OPSITE. INITIALED AND DATED
--- NOTE | 2020-09-17 18:55 | NUR ---
BEDSIDE REPORT COMPLETE. RECEIVED PT LYING IN BED LLE ON CPM. ALERT AND ORIENTED X4. DENIES ANY NEEDS OR PAIN. LEFT WRIST IV SL. NO SIGNS OF INFILTRATION OR INFECTION NOTED. DRESSING AND SWAB CAP INTACT. LLE MEPILEX AG DRESSING INTACT. CALL LIGHT AND WATER WITHIN REACH. BED ALARM ON. CPOC
[2020-09-17 21:35] VITALS: BP 117/75
--- NOTE | 2020-09-18 02:34 | NUR ---
PT LYING IN BED ON RIGHT SIDE EYES CLOSED RESTING. RR EVEN AND UNLABORED. CALL LIGHT WITHIN REACH. BED ALARM ON
[2020-09-18 05:34] LABS: BASOPHILS 0.7 % (0-2); EOSINOPHILS 6.1 % (0-7); HEMATOCRIT 30.4 % (42.0-54.0); LYMPHOCYTES 33.9 % (15-50); MCH 26.9 pg (26.0-34.0); MCV 81.6 fL (80.0-100.0); MEAN PLATELET VOLUME 7.6 fL (7.4-10.4); MONOCYTES 11.5 % (2-11); NEUTROPHILS 47.8 % (40-80); PLATELET COUNT 283 10x3/uL (130-400); RBC 3.72 10x6/uL (4.20-6.10); RDW 14.6 % (11.5-14.5); WBC 6.1 10x3/uL (4.8-10.8)
[2020-09-18 05:43] LABS: ANION GAP 6.9 mmol/L (8-16); CALCIUM 8.6 mg/dL (8.5-10.1); CARBON DIOXIDE 34.6 mmol/L (21.0-32.0); CREATININE - SERUM 1.1 mg/dL (0.6-1.3); POTASSIUM - SERUM 4.5 mmol/L (3.5-5.1)
[2020-09-18 08:00] VITALS: BP 178/84
--- NOTE | 2020-09-18 09:00 | NUR ---
HE IS SETTING ON THE SIDE OF THE BED EATING BREAKFAST. HE TOOK HIS MEDICATIONS WITHOUT ANY PROBLEMS. PRN GIVEN FOR PAIN. HE HAS A DRESSING ON THE LEFT KNEE WITH A CT HOSE ON. HE HAS A DRESSING INTACT TO HIS COCCYX. THE CALL LIGHT IS WITHIN REACH AND THE BED ALARM IS ON.
--- NOTE | 2020-09-18 18:59 | NUR ---
BEDSIDE REPORT COMPLETE. RECEIVED PT LYING IN BED AWAKE. ALERT AND ORIENTED X4. LEFT WRIST IV PATENT NO SIGNS OF INFILTRATION. DRESSING AND SWAB CAPS INTACT. LEFT KNEE MEPILEX AG DRESSING C/D/I. CALL LIGHT AND WATER WITHIN REACH. BED ALARM ON. CPOC
--- NOTE | 2020-09-18 19:30 | NUR ---
PLACED LLE ON CPM
[2020-09-18 19:55] VITALS: BP 165/78
--- NOTE | 2020-09-19 03:02 | NUR ---
pt lying in bed on left side eyes closed resting. rr even and unlabored. bed alarm on
[2020-09-19 07:00] VITALS: BP 168/66
--- NOTE | 2020-09-19 09:15 | NUR ---
HE IS WORKING WITH THERAPY, TOOK HIS MEDICAITONS WITHOUT ANY PROBLEMS. HAS A DRESSING TO THE LEFT KNEE.
[2020-09-19 19:00] VITALS: BP 169/80
--- NOTE | 2020-09-19 19:00 | NUR ---
CPM PLACED ON LEFT LEG. TOLERATING WELL. WILL CONTINUE FOR 3 HOURS. CALL LIGHT WITHIN REACH. DENIES NEEDS
--- NOTE | 2020-09-20 02:17 | NUR ---
LYING IN BED WITH CALL LIGHT WITHIN REACH. STATES KNEE PAIN A 7. TRAMADOL PROVIDED. WILL REASSESS.
[2020-09-20 07:00] VITALS: BP 161/76
--- NOTE | 2020-09-20 13:16 | RHP ---
PATIENT: Steve SHAY MEDICAL RECORD: [id number] ACCOUNT: [id number] LOCATION:[facility]1110 : 37 ADMISSION DATE: 09/15/20 REHABILITATION HISTORY AND PHYSICAL EXAMINATION POST ADMISSION PHYSICIAN EXAMINATION POSTADMISSION PHYSICAL EXAMINATION AND HISTORY AND PHYSICAL ADMITTING DIAGNOSIS: Left total knee replacement. HISTORY OF PRESENT ILLNESS: The patient is an 85-year-old gentleman who presented to the ED on 09/09/2020 with complaints of left knee pain with associated chills, redness, edema, tenderness on touch. The left knee began given problems on 09/08/2020 when he was repositioned. The patient now complaint as painful to bear weight. 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 He further reported to having left knee replacement about 5 weeks ago in [place]. A 100 mL of serosanguineous fluid was aspirated off the knee and sent to the lab. He was admitted with a suspected infection with septic left knee, status post arthroplasty; however, the cultures grew no bacteria. The patient was on IV antibiotics, vancomycin, and Merrem. Interim, the patient said that he felt like his kneecap was dislocated. A sunrise view showed the left knee was subluxed laterally so he underwent a left total knee arthroplasty poly exchange and extensor tendon repair. Active problems during this hospital course included elevated C-reactive protein, sepsis of the left knee, and history of left knee replacement. 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 Prior to the hospitalization, he was independent at home with his and daughter, he was ambulating 150 feet with a rolling walker. Currently, he is unable to bear full weight on his left lower extremity for ambulating and beside stepping, he has been ambulating with a rolling walker 15 feet with 60% assist. He will require inpatient therapy in order to return back to his prior level of functioning. Barriers to his discharge include deficits and ADLs, pain control, infection management, wound care, and safety concerns. Comorbidities include arthritis, constipation, diabetes, neuropathy, sepsis, weakness, and degenerative joint disease. PAST MEDICAL HISTORY: Significant for diabetes, neuropathy, gastric ulcer, constipation, osteoarthritis, degenerative joint disease. He has got a history of infected hardware in the past, chronic back pain. PAST SURGICAL HISTORY: Includes coronary artery bypass grafting at age 49 and knee surgery as above. ALLERGIES: PENICILLIN. CURRENT MEDICATIONS: Include Fornix one cap daily, Norvasc 5 mg daily. He is on vancomycin 1.5 grams q.24 hours managed by pharmacy, Protonix 40 mg daily, Merrem 1 gram q.8 hours, Neurontin 300 mg t.i.d. low resistance sliding scale with Humulin R. He is on Colace 100 mg b.i.d., Eliquis 2.5 mg b.i.d., glucose replacement protocol, tramadol 100 mg q.8 hours, DuoNeb updrafts as needed, [place] 5/325 one tab q. 4 hours p.r.n., Lasix 20 mg as needed for swelling, and MiraLax 17 grams in 8 ounces of water daily. HABITS: No alcohol or tobacco use. HISTORY AND PHYSICAL [id number] Steve SHAY FAMILY HISTORY: Noncontributory. SOCIAL HISTORY: The patient hopes to return back home and hopefully get back to his prior level of functioning. REVIEW OF SYSTEMS: GENERAL: He does complain of weakness and fatigue. HEENT: Denies cold, cough, or congestion. CARDIOVASCULAR: Denies any chest pain. PHYSICAL EXAMINATION: VITAL SIGNS: Stable, afebrile. GENERAL: He is a well-developed gentleman in no acute distress on exam. HEENT: Normocephalic and atraumatic. Mucosa moist. NECK: Supple without adenopathy. LUNGS: Clear at this time. No wheezing or rales. HEART: Regular rate and rhythm. No murmurs, rubs, or gallops. ABDOMEN: Soft, benign, nondistended. Positive bowel sounds times 4. EXTREMITIES: He does have postop swelling that is appropriate for this stage. NEUROLOGIC: He does have some diffuse weakness in the proximal muscles of his thighs. LABORATORY DATA: White count 6.8, H&H 9.8 and 30.3, and platelet count is 266. His sodium is 142, potassium 4.0, BUN and creatinine of 12 and 1.0, and blood sugars will be 109. ASSESSMENT: This is an 85-year-old gentleman admitted to the rehab with a working diagnosis of status post left total knee replacement and arthroplasty secondary to subluxed patella and tendon repair. The patient has potential to make improvement. We instituted the following multidisciplinary therapies including, not limited to physical, occupational, respiratory, speech, nutritional services, prosthetics and orthotics. Given his complex medical condition and risks for more complications, rehabilitation services cannot be provided at a low level of care such as correction facility. PLAN: 1. Admit to [facility] for inpatient therapy to include the following disciplines; A. Physical therapy to improve gait, all transfer skills and bed mobility to a modified independent level. B. Occupational therapy to improve activities of daily living. C. Case management to help with discharge planning and placement options. D. Nutrition to assist with nutritional needs. E. Rehabilitation nursing to assist in monitoring the patient's underlying medical condition and to assist with any type of bowel or bladder management. 2. The patient's current medications and medical care will be continued. 3. He will be placed on standard fall precautions. 4. The patient's estimated length of stay is approximately 7-10 days. 5. We discussed this patient during care team staff and we will continue him on antibiotics, watch for any signs of further infection. We will be taking care of that stage III coccyx wound here in the rehab and we will follow that closely. TRANSINT:[id number] Voice Confirmation ID: [id number] DOCUMENT ID: [id number] HISTORY AND PHYSICAL [id number] Steve SHAY notes whether there has been none or any medical/functional change since admission: - No change since preadmission screen. WILFREDO attests patient continues to be appropriate for IRF: - Contiues to be appropriate. HIRAM GALVAN MD at 1316 CC: [id number] DICTATION DATE: 09/16/2002 DRAFTER L[employer]SCAPE: 09/16/20 0929 ADM IN [facility] [address] [place] [address]
[2020-09-20 19:00] VITALS: BP 164/57
--- NOTE | 2020-09-20 21:30 | NUR ---
mepilex applied to coccyx. cpm placed on left leg for a 3 hour exercise.
--- NOTE | 2020-09-21 02:34 | NUR ---
resting supine with call light at side.
[2020-09-21 08:22] VITALS: BP 180/81
--- NOTE | 2020-09-21 10:00 | NUR ---
HE IS SETTING UP ON THE SIDE OF THE BED EATING BREAKFAST. PRN FOR PAIN GIVEN. PT IS WORKING WITH HIM.
--- NOTE | 2020-09-21 13:21 | NUR ---
HE HAD THE CPM ON FOR OVER 2 HOURS. THE CALL LIGHT IS WITHIN REACH AND THE BED ALARM IS ON.
[2020-09-21 18:49] LABS: BASOPHILS 0.9 % (0-2); EOSINOPHILS 3.3 % (0-7); HEMATOCRIT 32.6 % (42.0-54.0); HEMOGLOBIN 10.7 g/dL (13.5-17.5); LYMPHOCYTES 20.9 % (15-50); MCH 26.4 pg (26.0-34.0); MCHC 32.8 g/dL (31.0-37.0); MCV 80.6 fL (80.0-100.0); MEAN PLATELET VOLUME 7.6 fL (7.4-10.4); MONOCYTES 10.4 % (2-11); NEUTROPHILS 64.5 % (40-80); PLATELET COUNT 296 10x3/uL (130-400); RBC 4.04 10x6/uL (4.20-6.10); WBC 9.1 10x3/uL (4.8-10.8)
--- NOTE | 2020-09-21 18:54 | NUR ---
BEDSIDE REPORT COMPLETE. RECEIVED PT LYING IN BED AWAKE. ALERT AND ORIENTED X4. DENIES ANY NEEDS OR PAIN. NO DISTRESS NOTED. LEFT WRIST IV PATENT. DRESSING AND SWAB CAP INTACT. LEFT KNEE DRESSING C/D/I. CALL LIGHT AND WATER WITHIN REACH. AIDA ALARM ON. CPOC
[2020-09-21 18:59] LABS: CALCIUM 8.7 mg/dL (8.5-10.1); CARBON DIOXIDE 30.9 mmol/L (21.0-32.0); CREATININE - SERUM 1.2 mg/dL (0.6-1.3); POTASSIUM - SERUM 3.9 mmol/L (3.5-5.1)
[2020-09-21 20:51] VITALS: BP 144/67
--- NOTE | 2020-09-22 03:07 | NUR ---
PT LYING IN BED SUPINE EYES CLOSED RESTING. RR EVEN AND UNLABORED. AIDA ALARM ON
[2020-09-22 08:23] VITALS: BP 134/73
--- NOTE | 2020-09-22 15:40 | NUR ---
Nutrition Re-Assessment Diet: Diabetic + Jeffrey BID PO intake: ~91% average x last 9 meals. He reports that his appetite is good. States that he is drinking the Jeffrey mixed in chocolate milk. Last BM: 09/21/20 Wt: 238# (09/16/20) Meds noted: probiotics, SSI Labs noted: POC Glu 122(H) Skin: stage III PU to coccyx Estimated nutrition needs: 1900-2250cal (25-30kcal/kg), 83-98gms protein (1.1-1.3gms/kg), 2250-2700mL fluid (or per MD) Nutrition diagnosis: Increased nutrient needs (protein/amino acids and micronutrients) r/t increased demand for healing AEB stage III PU. Nutrition goals: -PO intake =/>75% meals -Meet fluid needs without fluid overload -Dry weight stable DHS -Improved skin intergrity/documented wound healing Recommendations/Interventions: -Recommend continue current diet. Will continue to honor food preferences within diet restrictions. -Continue Jeffrey BID for nutritionally aided wound healing. -RD will follow-up within 7 days.
--- NOTE | 2020-09-22 18:55 | NUR ---
BEDSIDE REPORT COMPLETE. RECEIVED PT LYING IN BED AWAKE. ALERT AND ORIENTED X4. DENIES ANY NEEDS OR PAIN. LEFT WRIST IV PATENT SL. DRESSING AND SWAB CAP INTACT. LEFT KNEE DRESSING INTACT. COCCYX MEPILEX DRESSING CHANGED TODAY BY DAYSHIFT RN, INTACT. CALL LIGHT AND WATER WITHIN REACH. AIDA ALARM ON. CPOC
[2020-09-22 22:01] VITALS: BP 165/76
--- NOTE | 2020-09-23 02:16 | NUR ---
PT LYING IN BED SUPINE EYES CLOSED SLEEPING. RR EVEN AND UNLABORED. AIDA ALARM ON
--- NOTE | 2020-09-23 05:32 | NUR ---
PT LYING IN BED EYES CLOSED RESTING. RR EVEN AND UNLABORED. NO ACUTE CHANGES IN CONDITION THIS SHIFT. AIDA ALARM ON
[2020-09-23 07:29] LABS: BASOPHILS 1.2 % (0-2); EOSINOPHILS 5.6 % (0-7); HEMOGLOBIN 10.4 g/dL (13.5-17.5); LYMPHOCYTES 36.1 % (15-50); MCH 26.3 pg (26.0-34.0); MCHC 32.6 g/dL (31.0-37.0); MCV 80.8 fL (80.0-100.0); MONOCYTES 12.9 % (2-11); NEUTROPHILS 44.2 % (40-80); PLATELET COUNT 287 10x3/uL (130-400); RBC 3.97 10x6/uL (4.20-6.10); RDW 14.7 % (11.5-14.5)
[2020-09-23 07:36] LABS: WBC 5.7 10x3/uL (4.8-10.8)
[2020-09-23 07:47] LABS: ANION GAP 8.6 mmol/L (8-16); CALCIUM 9.3 mg/dL (8.5-10.1); CARBON DIOXIDE 33.5 mmol/L (21.0-32.0); CREATININE - SERUM 1.1 mg/dL (0.6-1.3); POTASSIUM - SERUM 4.1 mmol/L (3.5-5.1)
[2020-09-23 08:06] VITALS: BP 166/90
--- NOTE | 2020-09-23 10:00 | NUR ---
HE IS WORKING WITH PT, TOOK HIS MEDICATIONS. HE HAS A DRESSING TO THE LEFT KNEE.
--- NOTE | 2020-09-23 14:09 | NUR ---
Nutrition Follow-up: Spoke with patient RN who states that patient has been taking Jeffrey BID mixed with 1 carton of chocolate milk AND a chocolate ice cream. RN was concered that patient's blood sugar continues to trend dorothea and that this is too much CHO/simple sugars for patient. RD agrees with this. Placed nursing instruction order for Jeffrey BID, may be mixed with 1 carton of chocolate milk but not with chocolate ice cream. RD will follow-up 09/29/20.
--- NOTE | 2020-09-23 14:51 | NUR ---
CARE TEAM MEETING: PATIENT IS PROGRESSING WELL IN THERAPY HIS TENATIVE DC DATE IS 09/29/20. PATIENT HAS AMBULATED 118 FT. AT THIS TIME PATIENT WILL DICHARGE HOME WITH FAMILY. WILL CONTINUE TO FOLLOW WITH PATIENT.
--- NOTE | 2020-09-23 18:06 | NUR ---
CMP ON THE LEFT LEG. THE CALL LIGHT IS WITHIN REACH AND THE BED ALARM IS ON.
--- NOTE | 2020-09-23 18:47 | NUR ---
BEDSIDE REPORT COMPLETE. RECEIVED PT LYING IN BED AWAKE. ALERT AND ORIENTED X4. CPM TO LEFT KNEE FUNCTIONING PROPERLY. PT DENIES ANY NEEDS OR PAIN. LEFT KNEE MEPILEX DRESSING INTACT DATED 09/21/20. LEFT FOREARM IV SALINE LOCKED. DRESSING AND SWAB CAP INTACT. OVERLAY MATTRESS INFLATED NO LEAKS DETECTED. CALL LIGHT AND WATER WITHIN REACH. BED ALARM ON. CPOC
[2020-09-23 19:33] VITALS: BP 144/84
--- NOTE | 2020-09-24 05:25 | NUR ---
PT LYING IN BED ON RIGHT SIDE EYES CLOSED RESTING. RR EVEN AND UNLABORED. NO ACUTE CHANGES IN CONDITION THIS SHIFT. CALL LIGHT AND WATER WITHIN REACH. BED ALARM ON
--- NOTE | 2020-09-24 07:44 | NUR ---
PT RESTING IN BED WITH EYES OPEN CALL LIGHT IN REACH WILL MONITER
[2020-09-24 08:09] VITALS: BP 168/83
--- NOTE | 2020-09-24 10:00 | NUR ---
I have reviewed this patient and I concur with the Shift Assessment completed by the Licensed Practical Nurse today this shift.
--- NOTE | 2020-09-24 17:20 | NUR ---
PT RESTING IN BED WITH EYES OPEN CALL LIGHT IN REACH WILL MONITER
--- NOTE | 2020-09-24 19:13 | NUR ---
PM ROUNDS MADE, PT WATCHING TV, INFORMED PT THAT I WILL BE BACK SHORTLY TO DO ASSESSMENT, PT VERBALIZES UNDERSTANDING, DENIES NEEDS AT THIS TIME, PT DENIES NEEDS OR PAIN AT THIS TIME, REPORTS PAIN PILL IS WORKING WELL
[2020-09-24 22:00] VITALS: BP 152/63
--- NOTE | 2020-09-25 02:18 | NUR ---
PT RESTING WITH EYES CLOSED, RESP QUIET, NO DISTRESS NOTED, LEFT UNDISTURBED AT THIS TIME, BED IN LOW POSITION, SIDE RAILS X 2, CALL LIGHT IN REACH
--- NOTE | 2020-09-25 04:00 | NUR ---
PT RESTING WITH EYES CLOSED, RESP QUIET, NO DISTRESS NOTED, LEFT UNDISTURBED AT THIS TIME
--- NOTE | 2020-09-25 07:31 | NUR ---
PT RESTING IN BED WITH EYES OPEN CALL LIGHT IN REACH NO PROBLEMS WILL MONITER
[2020-09-25 08:00] VITALS: BP 172/68
--- NOTE | 2020-09-25 18:28 | NUR ---
PT RESTING IN BED WITH EYES OPEN CALL LIGHT IN REACH WILL MONITER
--- NOTE | 2020-09-25 20:00 | NUR ---
PATIENT RECEIVED SITTING UP IN WHEELCHAIR. ASSESSMENT & VITAL SIGNS DONE. STAND BY ASSIST INTO BED. CALL LIGHT & WATER WITHIN REACH. WILL CONTINUE TO MONITOR.
[2020-09-25 21:13] VITALS: BP 116/73
--- NOTE | 2020-09-26 03:22 | NUR ---
PATIENT EYES CLOSED. RESPIRATIONS 20 & EVEN. BED LOW. CALL LIGHT WITHIN REACH. WILL CONTINUE TO MONITOR.
--- NOTE | 2020-09-26 05:43 | NUR ---
I have reviewed this patient and I concur with the Shift Assessment completed by the Licensed Practical Nurse today this shift.
[2020-09-26 07:28] VITALS: BP 118/79
--- NOTE | 2020-09-26 08:32 | NUR ---
HE IS IN THE WHEELCHAIR GOING TO THE GYM. NEW DRESSING ON HIS LEFT KNEE TODAY, ZIP TIES IN PLACE.
--- NOTE | 2020-09-26 19:10 | NUR ---
PATIENT RECEIVED SITTING UP IN WHEELCHAIR. ASSESSMENT & VITAL SIGNS DONE. BM & VOID IN COMMODE. CALL LIGHT WITHIN REACH. ALARM WAIVER SIGNED. PATIENT ENCOURAGED TO USE CALL LIGHT WHEN GETTING IN & OUT OF BED & WHEELCHAIR. PATIENT AGREED. WILL CONTINUE TO MONITOR.
[2020-09-26 20:00] VITALS: BP 156/60
--- NOTE | 2020-09-26 22:10 | NUR ---
PATIENT BP 156/60 PULSE 60 PATIENT STATED " I HAVE A DOUBLE BEAT." YOU HAVE TO USE A JU CUFF TO GET BP RIGHT. MACHINE INCLUDES DOUBLE BEAT."
--- NOTE | 2020-09-27 01:26 | NUR ---
I have reviewed this patient and I concur with the Shift Assessment completed by the Licensed Practical Nurse today this shift.
[2020-09-27 06:37] VITALS: BP 136/58
--- NOTE | 2020-09-27 07:00 | NUR ---
PT IS RESTING IN BED WITH EYES OPEN. RESPIRATIONS ARE EVEN AND UNLABORED. PT IS AAO X 4 AND ANSWERS ALL QUESTIONS APPROPRIATELY. DRESSING TO LEFT KNEE NOTED AND IS CDI. PT DENIES PRESENCE OF NUMBNESS/TINGLING AT THIS TIME. PT DENIES PRESENCE OF PAIN/N/V AT THIS TIME. BLE PEDAL PULSES ARE PALP AND CAP REFILL IS < 3. PT WITH FIRST STEP OVERLAY MATTRESS IN PLACE. PT WITH BED ALARM WAIVER. BED IS IN THE LOWEST POSITION. CALL LIGHT AND BEDSIDE TABLE ARE WITHIN REACH. SIDE RAILS X 2. PT DENIES FURTHER NEEDS. WILL CONT TO MONITOR.
--- NOTE | 2020-09-27 11:15 | NUR ---
DRESSING CHANGED TO LEFT KNEE PER PT REQUEST. MEPILEX AG DRESSING USED PER ORDER. BED IS IN THE LOWEST POSITION. CALL LIGHT AND BEDSIDE TABLE ARE WITIHN REACH. SIDE RAILS X 2. PT DENIES FURTHER NEEDS. WILL CONT TO MONITOR.
--- NOTE | 2020-09-27 14:35 | NUR ---
IN WHEELCHAIR IN HALLWAY IN NO ACUTE DISTRESS.
[2020-09-27 19:00] VITALS: BP 150/76
--- NOTE | 2020-09-27 19:22 | NUR ---
PATIENT RECEIVED LAYING ON RIGHT SIDE OF BED. ASSESSMENT & VITAL SIGNS DONE. NO C/O PAIN OR DISTRESS. CALL LIGHT, URINAL, & BEDSIDE TABLE WITHIN REACH. WILL CONTROL TO MONITOR.
--- NOTE | 2020-09-28 03:02 | NUR ---
I have reviewed this patient and I concur with the Shift Assessment completed by the Licensed Practical Nurse today this shift.
--- NOTE | 2020-09-28 03:33 | NUR ---
PATIENT EYES CLOSED. RESPIRATIONS 18 & EVEN. BED LOW. ALARM ON. CALL LIGHT WITHIN REACH. WILL CONTINUE TO MONITOR.
[2020-09-28 07:30] LABS: BASOPHILS 0.7 % (0-2); EOSINOPHILS 3.4 % (0-7); HEMATOCRIT 32.7 % (42.0-54.0); HEMOGLOBIN 10.5 g/dL (13.5-17.5); LYMPHOCYTES 19.4 % (15-50); MCH 25.8 pg (26.0-34.0); MCHC 32.2 g/dL (31.0-37.0); MCV 80.2 fL (80.0-100.0); MEAN PLATELET VOLUME 8.1 fL (7.4-10.4); MONOCYTES 8.6 % (2-11); NEUTROPHILS 67.9 % (40-80); PLATELET COUNT 293 10x3/uL (130-400); RBC 4.07 10x6/uL (4.20-6.10); RDW 14.8 % (11.5-14.5)
[2020-09-28 07:33] LABS: ANION GAP 7.7 mmol/L (8-16); CALCIUM 8.9 mg/dL (8.5-10.1); CARBON DIOXIDE 32.2 mmol/L (21.0-32.0); CREATININE - SERUM 1.1 mg/dL (0.6-1.3); POTASSIUM - SERUM 3.9 mmol/L (3.5-5.1)
--- NOTE | 2020-09-28 07:33 | NUR ---
PT RESTING IN BED WITH EYES OPEN CALL LIGHT IN REACH NO PROBLEMS WILL MONITER
[2020-09-28 08:10] VITALS: BP 144/82
--- NOTE | 2020-09-28 18:16 | NUR ---
PT RESTING IN BED WITH EYES OPEN CALL LIGHT IN REACH NO PROBLEMS WILL MONITER
--- NOTE | 2020-09-28 19:00 | NUR ---
RECEIVED SHIFT REPORT FROM AMOL OGLESBY LPN, INFORMED PT THAT I WILL BE BACK SHORTLY TO DO ASSESSMENT, PT VERBALIZES UNDERSTANDING, REQUESTS PAIN PILL WHEN I RETURN
--- NOTE | 2020-09-28 19:29 | NUR ---
ASSESSMENT PER FLOW SHEET, VS OBTAINED PER MONONITROTOLUENE OPERATOR, EMPTIED 625 MLS OF CLEAR YELLOW URINE FROM URINAL, DRESSING COMING OFF OF INC, REPLACED WITH NEW MEPILEX, PT REPORTS BM TODAY, ADM PAIN MED PER MD ORDERS, SEE EMAR, PT DENIES FURTHER NEEDS
--- NOTE | 2020-09-28 20:47 | NUR ---
ADM 2100 MEDS PO PER MD ORDERS, INFORMED PT THAT I WILL BE BACK SHORTLY TO OBTAIN BS, PT VERBALIZES UNDERSTANDING, DENIES FURTHER NEEDS
[2020-09-28 21:37] VITALS: BP 168/72
--- NOTE | 2020-09-28 21:46 | NUR ---
ADM INSULIN PER MD ORDERS, SEE EMAR, PT DENIES NEEDS AT THIS TIME, BED IN LOW POSITION, SIDE RAILS X 2, CALL LIGHT IN REACH
--- NOTE | 2020-09-29 05:47 | NUR ---
FSBS OBTAINED PER STONEWORKER
--- NOTE | 2020-09-29 06:10 | NUR ---
PT RESTING WITH EYES CLOSED, AROUSES TO SOFT VERBAL STIMULATION, ADM 0600 MED PER MD ORDERS, SEE EMAR, EMPTIED 300 MLS OF CLEAR YELLOW URINE FROM URINAL, PT DENIES FURTHER NEEDS, BED IN LOW POSITION, SIDE RAILS X 2, CALL LIGHT IN REACH
[2020-09-29] MEDS ORDERED: ELIQUIS2.5 MG PO (07:56)
[2020-09-29] MEDS ORDERED: HYDROCODON-ACE1 EAC7 PO (07:57)
[2020-09-29 07:59] VITALS: BP 169/70
--- NOTE | 2020-09-29 09:57 | NUR ---
PATIENT DISCHARGING HOME WITH FAMILY TODAY. [facility] WILL PROVIDE THERAPY AT HOME.DAVID SIGNED, IMM SERVED AND EXPLIANED , ONE GIVEN TO PATIENT AND ONE FILED IN CHART. NO NEW DME NEEDED AT THIS TIME. NO COMPARE DATA REVIEWED PER SPOUSE REQUEST. DR. NAVA/GHADA 10/06/20 @ 9:00, DR. YAÑEZ 10/05/20 @ 9:00. DISCHARGE INSTRUCTIONS FAXED TO PCP, HOME HEALTH AND REVIEWED WITH PATIENT AND SPOUSE.
== END 2020-09-29 13:55 | disposition home health service (06) | DRG 559 ==
LOC: D.REHAB 19:55
PROVIDERS: ADMIT Emergency Medicine; ATTEND Emergency Medicine
DX: Z47.1 Aftercare following joint replacement surgery (principal); L89.153 Pressure ulcer of sacral region, stage 3; A41.9 Sepsis, unspecified organism; Z96.652 Presence of left artificial knee joint; M19.90 Unspecified osteoarthritis, unspecified site; K59.00 Constipation, unspecified; R53.1 Weakness; E11.40 Type 2 diabetes mellitus with diabetic neuropathy, unspecified; G89.29 Other chronic pain

== ENCOUNTER → 2020-10-07 17:55 | Outpatient (CLI) | payer MEDICARE ==
[2020-09-16 13:00] VITALS: BMI 34.1
== END | disposition home or self-care (01) ==
LOC: D.LABREF 17:55
PROVIDERS: ATTEND Family Medicine
DX: S83.005A Unspecified dislocation of left patella, initial encounter (principal)